=== PATIENT | female | born 1945 | race Caucasian/White ===

== ENCOUNTER 2017-02-20 04:54 | Emergency (ER) | payer MEDICARE ==
[~2017-02-20] VITALS: Ht 162.6 cm; Wt 100.9 kg
[2017-02-20] MEDS ORDERED: MORPHINE SULFATE 4 MG/ML, 1ML ONE (05:59)
[2017-02-20] MEDS ORDERED: ONDANSETRON 2MG/ML, 2ML ONE (05:59)
[2017-02-20] MEDS ORDERED: DIPH,PERTUSS(ACELL),TET VAC/PF 0.5 ML IM-VACC ONE (06:00)
[2017-02-20] MEDS ORDERED: L.E.T SOLUTION TP ONE ×2 (06:00→06:36)
[2017-02-20] MEDS ORDERED: SODIUM CHLORIDE FLUSH 10ML SYR IVF ONE (06:00)
[2017-02-20] MEDS ORDERED: SODIUM CHLORIDE 0.9% 1,000ML IVBOLUS ONE (06:00)
[2017-02-20] MEDS ORDERED: MORPHINE SULFATE 4 MG/ML, 1ML IVPush PRN (06:00)
[2017-02-20] MEDS ORDERED: ONDANSETRON ODT 4 MG PO ONE (06:00)
[2017-02-20] MEDS ORDERED: BACITRACIN ZINC OINT 500U/GM, 0.9 GM ONE ×2 (06:36→07:40)
[2017-02-20 06:49] LABS: BLOOD UREA NITROGEN 18 mg/dL (7-18)
[2017-02-20 07:00] LABS: IS PT STATUS REG ER OR PRE ER? YES
[2017-02-20 09:16] VITALS: BP 118/64
== END 2017-02-20 10:30 | disposition home or self-care (01) ==
LOC: ED 10:07
DX: S06.0X9A Concussion with loss of consciousness of unspecified duration, initial encounter (principal); I10 Essential (primary) hypertension; W19.XXXA Unspecified fall, initial encounter; Y93.89 Activity, other specified; Y92.009 Unspecified place in unspecified non-institutional (private) residence as the place of occurrence of the external cause; Y99.8 Other external cause status
CPT/HCPCS: 36415; 70450; 72125; 73090; 80048; 82040; 84484; 85025; 90471; 90715; 93005; 96361; 96374; 99285; J7030; Q0162

== ENCOUNTER → 2017-03-22 | Outpatient (CLI) | payer MEDICARE | END | disposition home or self-care (01) | LOC: CFH 14:06 | PROVIDERS: ATTEND Internal Medicine | DX: Z13.820 Encounter for screening for osteoporosis (principal); M81.0 Age-related osteoporosis without current pathological fracture; M85.88 Other specified disorders of bone density and structure, other site | CPT/HCPCS: 77080 ==

== ENCOUNTER → 2018-05-27 | Outpatient (CLI) | payer MEDICARE | END | disposition home or self-care (01) | LOC: CFH 12:00 | PROVIDERS: ATTEND Family Medicine | DX: R06.02 Shortness of breath (principal) | CPT/HCPCS: 71046 ==

== ENCOUNTER → 2018-08-04 | Outpatient (CLI) | payer MEDICARE | END | disposition home or self-care (01) | LOC: CFH 13:52 | PROVIDERS: ATTEND Internal Medicine Critical Care Medicine | DX: I37.1 Nonrheumatic pulmonary valve insufficiency (principal); I10 Essential (primary) hypertension; E78.5 Hyperlipidemia, unspecified; E66.2 Morbid (severe) obesity with alveolar hypoventilation | CPT/HCPCS: 71250; 93306 ==